=== PATIENT | male | born 1965 | race African-American/Black ===

== ENCOUNTER → 2019-01-20 | Outpatient (CLI) | payer OTHER ==
--- NOTE | 2019-01-20 11:23 | REP ---
Orbital series: History: Trauma. Findings: Seven orbital facial views demonstrate bony orbital margins are intact. Maxillary and frontal sinuses appear intact with some mild mucosal thickening affecting the frontal sinus on the left. There is a metallic suture in the region of the mandibular angle on the left from previous surgery. No acute mandibular fracture is seen. Zygomatic arches are intact. Impression: No facial fracture is apparent. The nasal bone is not well seen. Electronically Signed by Zain Medeiros MD 01/20/2019 11:27 A
--- NOTE | 2019-01-20 11:24 | REP ---
Temporomandibular joint series: Four views. History: Facial trauma. Findings: Bilateral oblique lateral views show no evidence of condylar or subcondylar fracture. No mandibular ramus fracture is seen. There is a metallic suture in the angle of the mandible on the right as seen on the facial bone series. Impression: Negative TMJ series. No condylar neck fracture seen on either side. Electronically Signed by Zain Medeiros MD 01/20/2019 11:29 A
--- NOTE | 2019-01-20 11:25 | REP ---
Mandible series: Four views. History: Facial trauma. Findings: No mandibular fracture is seen. There is a previously placed metallic suture in the mandibular angle region on the right. No evidence of malocclusion is seen. Impression: No mandibular fracture seen. Electronically Signed by Zain Medeiros MD 01/20/2019 11:29 A
== END ==
LOC: M RAD 09:02
PROVIDERS: ATTEND Surgery
DX: S09.93XA Unspecified injury of face, initial encounter (principal); X58.XXXA Exposure to other specified factors, initial encounter; Y93.9 Activity, unspecified; Y99.9 Unspecified external cause status; Y92.9 Unspecified place or not applicable